=== PATIENT | male | born 1995 | race Caucasian/White ===

== ENCOUNTER 2022-12-14 10:19 | Emergency (ER) | payer MEDICAID, SELFPAY ==
[2022-12-14 10:20] VITALS: BP 121/68; PULSE 112; RESP 16; TEMP 36.9; O2SAT 98; BMI 28.1
--- NOTE | 2022-12-14 10:36 | PC.NURSE ---
rounded on pt stated no needs, visitor at bs
--- NOTE | 2022-12-14 10:37 | HMH.EDGENADL ---
Discharge Plan Disposition Patient Disposition: Home, Self-Care Condition: Good Referrals Follow up/Referrals: Lalito Argueta APRN [Primary Care Provider] - See instructions Activity Restrictions/Add. Instructions Additional Instructions/Restrictions: You were evaluated in the emergency department today. Please take Tylenol and ibuprofen at home as needed for symptoms. I also recommend taking [id number] cold and flu medications to improve your symptoms as well. Make sure that you are not doubling up on acetaminophen between Tylenol and [id number] cold and flu medications. Follow-up with your primary care provider over the next 3 days for reassessment. Return to the emergency department for new or worsening symptoms. Clinical Impressions Clinical Impression: Acute viral syndrome Instructions Patient Instructions: DI for Viral Syndrome, DI for Headache Discharge ED Provider: Marisol Wilson General Adult HPI General Chief complaint: Headache Stated complaint: fever, body aches, runny nose, cough, driange, h/a Time Seen by Provider: 12/14/22 10:31 Mode of Arrival: Ambulatory Source of Information: Patient Limitations: No Limitations Description of Symptoms (Recalled from ER Triage Doc. by RN): Patient reports headache and body aches since this morning. Denies n/v/d. History of Present Illness HPI narrative: This patient is a 27-year-old male with a history of rheumatoid arthritis presenting to the emergency department for evaluation with concern for headache, body aches, fever, nasal congestion, and sinus drainage that started last night. He denies any other concerns. He was well yesterday prior to this. He denies any vision changes, numbness, tingling, unilateral weakness, or other concerns. Related Data Allergies Allergy/AdvReac Type Severity Reaction Status Date / Time oseltamivir [From Tamiflu] Allergy Verified 12/14/22 10:29 [facility] Disclaimer: The information contained in this section may have been updated after the patient was seen, as this information can be updated by other users. Social History Smoking Status: Current every day smoker alcohol intake: never current occupational status: employed Travel in the last 8 weeks: None ROS Obtained: Yes All systems reviewed & no additional complaints except as documented Physical Exam General General appearance: alert and in no apparent distress Head Head exam: atraumatic and normocephalic Eye Eye exam: Present normal appearance, PERRL and EOMI ENT ENT exam: Present normal exam, normal oropharynx, mucous membranes moist and normal external ear exam Neck Neck exam: Present normal inspection, full ROM and trachea midline; Absent tenderness Chest Chest inspection: Present normal inspection and symmetric chest wall rise; Absent tenderness Respiratory Respiratory exam: Present normal lung sounds bilaterally; Absent respiratory distress, wheezes, stridor or accessory muscle use Cardiovascular Cardiovascular exam: Present regular rate and normal rhythm Abdominal Exam Abdominal exam: Present soft; Absent distention, tenderness or guarding Extremities Exam Extremities exam: Present normal inspection, full ROM and normal capillary refill; Absent tenderness or edema Back Exam Back exam: Present normal inspection and full ROM; Absent tenderness Neurological Exam Neurological exam: Present alert, oriented X3, CN II-XII intact and normal gait; Absent motor sensory deficit Psychiatric Psychiatric exam: Present normal affect and normal mood Skin Skin exam: Present warm and dry Medical Decision Making Medical Records Medical records reviewed: Yes I reviewed the patient's medical records. Hemal Inquiry Pt receiving controlled substance: No Vital Signs: 12/14/22 10:20 12/14/22 12:12 Temperature 98.4 F 98.1 F Temperature Source Oral Oral Pulse Rate 97 H Pulse Rate [Radial] 112 H
[2022-12-14 10:40] LABS: Coronavirus 19, PCR Not Detected (NotDetected); Influenza A, PCR Not Detected (NotDetected); Influenza B, PCR Not Detected (NotDetected)
--- NOTE | 2022-12-14 11:17 | PC.NURSE ---
rounded on patient at this time. gave pt drink for po challenge. pt updated on plan of care. no needs voiced at this time.
[2022-12-14 12:12] VITALS: BP 106/62; PULSE 97; RESP 18; TEMP 36.7; O2SAT 97
== END 2022-12-14 12:13 | disposition home or self-care (01) ==
PROVIDERS: Emergency Provider Emergency Medicine; PCP Nurse Practitioner Family
DX: R51.9 Headache, unspecified (principal); R50.9 Fever, unspecified; B34.9 Viral infection, unspecified; M06.9 Rheumatoid arthritis, unspecified; F17.200 Nicotine dependence, unspecified, uncomplicated
CPT/HCPCS: 87636; 96372; 99283

== ENCOUNTER 2023-08-25 10:47 | Emergency (ER) | payer MEDICAID, SELFPAY ==
[2023-08-25 11:00] VITALS: BP 128/86; BP 155/88; PULSE 128; PULSE 93; RESP 20; TEMP 36.8; O2SAT 98; BMI 28.2
--- NOTE | 2023-08-25 11:05 | ED_ITS ---
Discharge Plan Disposition Patient Disposition: Home, Self-Care Referrals Follow up/Referrals: Lalito Argueta APRN [Primary Care Provider] - See instructions Activity Restrictions/Add. Instructions Additional Instructions/Restrictions: You have evidence of moderate to severe cellulitis of your left leg. No systemic signs of illness or sepsis. You were given a medication called dalbavancin which should adequately treat your cellulitis. You should start to see improvement in about 48 hours. Return after 72 hours if you are not seeing improvement or if you are having high fevers or other concerns. Clinical Impressions Clinical Impression: Cellulitis of left leg Instructions Patient Instructions: DI for Skin Abscess Discharge ED Provider: Chandana Waggoner General Adult HPI General Chief complaint: Skin/Abscess/Foreign Body Stated complaint: left leg upper thigh bullseye rash headache chills Time Seen by Provider: 08/25/23 10:56 History of Present Illness HPI narrative: Patient is a 28-year-old previously healthy other than rheumatoid arthritis on NSAIDs presenting today with left leg swelling and redness fevers and chills. States that this started about 2 weeks ago and initially had the presentation or the findings that were consistent with a bull's-eye rash. No definitive tick bites or other bug bite that he is aware. He did go see his primary care doctor was started on mupirocin and Bactrim Lyme titers apparently were sent but no results from those have been found. Patient does have some fevers and chills lightheadedness and overall not feeling well. The swelling in his left lateral aspect of his thigh is significantly worsened which prompted his emergency department visit today. Related Data Allergies Allergy/AdvReac Type Severity Reaction Status Date / Time oseltamivir [From Tamiflu] Allergy Verified 12/14/22 10:29 [facility] Disclaimer: The information contained in this section may have been updated after the patient was seen, as this information can be updated by other users. Social History (Updated 12/14/22 @ 13:34 by Marisol Wilson DO) Smoking Status: Never smoker alcohol intake: never current occupational status: employed Travel in the last 8 weeks: None ROS Obtained: Yes All systems reviewed & no additional complaints except as documented Physical Exam General General appearance: alert Respiratory Respiratory exam: Present normal lung sounds bilaterally Cardiovascular Cardiovascular exam: Present tachycardia Abdominal Exam Abdominal exam: Present soft; Absent distention or tenderness Expanded Lower Extremity Exam Left: Leg image: 2 1. erythema warmth swelling and ttp Neurological Exam Neurological exam: Present alert and oriented X3 Medical Decision Making Hemal Inquiry Pt receiving controlled substance: No Vital Signs: 08/25/23 11:00 08/25/23 11:00 Temperature 98.3 F Temperature Source Oral Pulse Rate 93 H Pulse Rate [Left Radial] 128 H Respiratory Rate 20 Blood Pressure 128/86 Blood Pressure [Right Arm] 155/88 H Blood Pressure Mean 100 Blood Pressure Mean [Right Arm] 110 02 Sat by Pulse Oximetry 98 98 Oxygen Delivery Method Room Air Lab Data Lab results reviewed: Yes I reviewed the patient's lab results. Lab Results 08/25/23 11:05: WBC 8.8, RBC 5.01, Hgb 15.5, Hct 46.6, MCV 92.9, MCH 30.8, MCHC 33.2, RDW 13.9, Plt Count 287, MPV 8.6, Neut % (Auto) 72.9, Lymph % (Auto) 18.7, [place] % (Auto) 4.8, Eos % (Auto) 2.7, Baso % (Auto) 0.9, Neut # (Auto) 6.4, Lymph # (Auto) 1.7, [place] # (Auto) 0.4, Eos # (Auto) 0.2, Baso # (Auto) 0.1, Sodium 139, Potassium 3.9, Chloride 104, Carbon Dioxide 23, Anion Gap 15.9 H, BUN 10, Creatinine 1.00, Estimated GFR 88, Est GFR ( Amer) 106, Glucose 85, Lactate 2.0, Calcium 10.5 H, Total Bilirubin 0.5, AST 31, ALT 31, Alkaline Phosphatase 115, Total Creatine Kinase 109, Troponin I < 0.01, C-Reactive Protein 22.4 H, Total Protein 8.4 H, Albumin 5.0, Globulin 3.4 H, Albumin/Globulin Ratio 1.5 08/25/23 11:05 08/25/23 11:05 Orders (Tests/Meds): ED MEDICATIONS Discontinued Medications Generic Name Dose Route Start Last Admin Trade Name Freq PRN Reason Stop Dose Admin Lactated Ringer's 1,000 mls @ 999 mls/hr 08/25/23 11:00 08/25/23 11:38 Lactated Ringer's 1000 Ml Bag IV 08/25/23 12:00 999 mls/hr .Q1H1M ELFEGO Administration Dalbavancin 1,500 mg/ Dextrose 250 mls @ 500 mls/hr 08/25/23 12:34 IV 08/25/23 12:35 ONCE ONE ORDERS Category Date Time Status XR femur LT 2V Stat Exams 08/25/23 11:41 Taken CBC w/Auto Diff [Complete Blood Count Auto Diff] Stat Lab 08/25/23 11:05 Completed CK [Creatine Kinase] Stat Lab 08/25/23 11:05 Completed CMP [Comprehensive Metabolic Panel] Stat Lab 08/25/23 11:05 Completed CRP [C-Reactive Protein] Stat Lab 08/25/23 11:05 Completed Lactic Acid Stat Lab 08/25/23 11:05 Completed Lyme Ab, Modified 2-Tier Stat Lab 08/25/23 11:05 Received Lyme B. burgdorferi PCR Blood Stat Lab 08/25/23 11:05 Received Trop I [Troponin I] Stat Lab 08/25/23 11:05 Completed Troponin I Q3H Lab 08/25/23 14:00 Ordered Troponin I Q3H Lab 08/25/23 17:00 Ordered Blood Culture Stat Micro 08/25/23 11:30 Received ECG Data Tracing #1: I reviewed this ECG and interpreted as documented below: Ventricular 93 sinus rhythm there is right axis deviation no acute ischemic changes noted no other conduction abnormalities Medical Decision Narrative: 28-year-old male presented with left lateral leg cellulitis. He is systemically ill with a tachycardic heart rate of 130. Will work him up for sepsis. Additionally did show me a picture of the initial bite which does not fact appear to be erythema migrans concerning for possible Lyme disease. Lyme titers have been started. He has not been on any doxycycline yet. Bactrim likely does not have adequate coverage for Lyme. Staph and strep and on endemic area more likely. Will hold off on antibiotics until the remainder of his workup is complete. X-ray performed to person interpreted shows no subcutaneous gas Labs returned which were unremarkable. Reassessment 12:40 PM patient feeling much better vital signs improved heart rate in the 70s no evidence of sepsis objectively. He also states that his doctor called him back and told him that his Lyme titers were negative. Therefore we will not treat further for Lyme disease. He has been given a dose of dalbavancin in the emergency department which should adequately cover and treat his cellulitis which has been failing with Bactrim. He has been advised that this should improve in 48 to 72 hours and return with any significant worsening of his symptoms. He was discharged in stable and improved condition. Critical Care Critical Care Time Critical Care Time: No
--- NOTE | 2023-08-25 11:12 | ECG_ITS ---
APPROVED REPORT Exam: Resting ECG HR:93 bpm ECG Measurements Heart Rate 93 AXES NH 127 P 64 QRSd 108 QRS 120 QT 345 T 16 QTc 396 Conclusion SINUS RHYTHM RIGHT AXIS DEVIATION [QRS AXIS > 100] ABNORMAL ECG UNCONFIRMED REPORT Electronically signed by : Yevgeniy Waggoner, 08/25/2023 15:19:55
[2023-08-25 11:19] LABS: Basophils # 0.1 K/mm3 (0-0.2); Basophils % 0.9 % (0.1-2.0); Eosinophils # 0.2 K/mm3 (0.0-0.4); Eosinophils % 2.7 % (0.1-12.0); Hematocrit 46.6 % (42.0-52.0); Hemoglobin 15.5 g/dL (14.1-18.0); Lymphocytes # 1.7 K/mm3 (0.7-4.5); Lymphocytes % 18.7 % (10-50); Mean Corpuscular HGB Conc 33.2 g/dL (31.8-35.4); Mean Corpuscular Hemoglobin 30.8 pg (27.0-31.2); Mean Corpuscular Volume 92.9 fl (80-94); Mean Platelet Volume 8.6 fl (7.4-10.4); Monocytes # 0.4 K/mm3 (0.1-1.0); Monocytes % 4.8 % (1.7-9.3); Neutrophils # 6.4 K/mm3 (1.8-7.8); Neutrophils % 72.9 % (37.0-80.0); Platelet Count 287 K/mm3 (142-424); Red Blood Count 5.01 M/mm3 (4.60-6.20); Red Cell Distribution Width 13.9 % (11.5-17.5); White Blood Count 8.8 K/mm3 (4.8-10.8)
[2023-08-25 11:24] LABS: Chloride 104 mmol/L (98-107); Potassium 3.9 mmoL/L (3.5-5.1); Sodium 139 mmol/L (136-145)
[2023-08-25 11:27] LABS: Alanine Aminotransferase 31 U/L (12-78); Alkaline Phosphatase 115 U/L (38-126); Anion Gap 15.9 mEq/L (5-15); Aspartate Amino Transferase 31 U/L (17-59); Bilirubin,Total 0.5 mg/dl (0.2-1.3); Blood Urea Nitrogen 10 mg/dl (9-20); Calcium 10.5 mg/dl (8.4-10.2); Carbon Dioxide 23 mmol/L (22.0-30.0); Creatine Kinase 109 U/L (55-170); Estimated Glomerular Filt Rate 88 ml/min (>60); GFR (African American) 106 ML/MIN (>60); Glucose 85 mg/dl (74-100)
[2023-08-25 11:28] LABS: Albumin/Globulin Ratio 1.5 (1.1-1.8); Globulin 3.4 g/dL (1.3-3.2); Total Protein,Serum 8.4 g/dl (6.3-8.2)
[2023-08-25 11:33] LABS: C-Reactive Protein 22.4 mg/L (0-4)
[2023-08-25] MEDS: LACTATED RINGERS 1000ML 1,000 ML 999 ML IV (11:38)
[2023-08-25 11:41] VITALS: BP 103/60; PULSE 87; O2SAT 98
--- NOTE | 2023-08-25 11:41 | XR_ITS ---
FINAL REPORT CLINICAL HISTORY: cellulitis r/o gas FINDINGS: LEFT FEMUR 2 views were obtained. There is no acute fracture or dislocation. Visualized joint spaces are normally aligned. Soft tissues are unremarkable. There is no evidence of soft tissue gas. IMPRESSION: No acute bony abnormality. Reviewed, Interpreted and Dictated by Richard Callaway III, MD Transcribed by Carol Pearson Authenticated and [facility]
[2023-08-25 11:55] LABS: Troponin I < 0.01 ng/ml (0.00-0.034)
[2023-08-25 12:00] VITALS: BP 119/49; PULSE 77; O2SAT 98
[2023-08-25 12:30] VITALS: BP 116/78; PULSE 70; O2SAT 99
--- NOTE | 2023-08-25 12:37 | PC.NURSE ---
DR MAYNARD AT BEDSIDE
[2023-08-25] MEDS: DALBAVANCIN HCL 1,500 MG in DEXTROSE 5 % IN WATER 250 ML 500 MG IV (13:06)
[2023-08-25 13:50] VITALS: BP 116/78; PULSE 70; RESP 20; TEMP 36.8; O2SAT 99
[2023-08-26 15:01] LABS: Lyme Ab CIA Positive (Negative); Lyme Ab IgM CIA Positive (Negative); Lyme IgG CIA Positive (Negative)
[2023-08-28 09:14] LABS: Lyme B. burgdorferi PCR Blood Negative (Negative)
== END 2023-08-25 13:51 | disposition home or self-care (01) ==
PROVIDERS: Emergency Provider Student in an Organized Health Care Education/Training Program; PCP Nurse Practitioner Family
DX: L03.116 Cellulitis of left lower limb (principal); M06.00 Rheumatoid arthritis without rheumatoid factor, unspecified site; R00.0 Tachycardia, unspecified
CPT/HCPCS: 73552; 80053; 82550; 83605; 84484; 85025; 86140; 86618; 87040; 87476; 93005; 96361; 96374; 99284; J0875; J7060; J7120

== ENCOUNTER 2024-01-08 05:09 | Emergency (ER) | payer MEDICAID, SELFPAY ==
[2024-01-08 05:10] VITALS: BP 138/85; PULSE 100; RESP 16; TEMP 36.5; O2SAT 100; BMI 27.4
--- NOTE | 2024-01-08 05:23 | ED_ITS ---
Discharge Plan Disposition Patient Disposition: Home, Self-Care Condition: Good Prescriptions Prescriptions: New ondansetron 4 mg tablet,disintegrating 4 mg PO Q6H PRN (Reason: nausea and vomiting) Qty: 10 0RF Referrals Follow up/Referrals: Lalito Argueta APRN [Primary Care Provider] - See instructions Activity Restrictions/Add. Instructions Additional Instructions/Restrictions: You were evaluated in the ER and are appropriate for discharge at this time. Take the prescribed ondansetron if needed for nausea, vomiting. Also take Tylenol, ibuprofen if needed for pain or fevers. Do not exceed the recommended dose on the bottle. Drink plenty of water. Make an appointment with primary care doctor for reevaluation in a few days, return to the ER with new, worsening, or otherwise concerning symptoms. Clinical Impressions Clinical Impression: Nausea, vomiting, and diarrhea, Abdominal pain Instructions Patient Instructions: DI for Acute Abdominal Pain Print Language Print Language: Bengali Discharge ED Provider: Sabra Parker General Adult HPI General Chief complaint: Abdominal Pain Stated complaint: abd pain, vomiting, chills, no appetite Time Seen by Provider: 01/08/24 05:16 History of Present Illness HPI narrative: 28-year-old male with no known medical conditions, no daily medications, no known drug allergies presents to the ER with complaints of abdominal pain, nausea, vomiting, diarrhea. Patient states his pain started 3 days ago. He has not had documented fever but has had chills. He states the pain 2 days ago was not that bad, yesterday it was significantly worse especially in the morning. He states since that time he has had steady pain as well as associated nausea, vomiting, diarrhea. Vomiting is nonbloody, nonbilious, and occurred this morning. Diarrhea is nonbloody, nonmelanotic. No dysuria or hematuria. Patient reports that his pain has mostly been in the middle of the stomach. No history of abdominal surgeries. Patient denies alcohol use. He has not tried any medications for his symptoms. ROS otherwise negative. Related Data Previous Rx's ?Medication ?Instructions ?Recorded ondansetron 4 mg disintegrating 4 mg PO Q6H PRN nausea and 01/08/24 tablet vomiting #10 tabs Allergies Allergy/AdvReac Type Severity Reaction Status Date / Time oseltamivir [From Tamiflu] Allergy Verified 12/14/22 10:29 [facility] Disclaimer: The information contained in this section may have been updated after the patient was seen, as this information can be updated by other users. Social History (Updated 12/14/22 @ 13:34 by Marisol Wilson DO) Smoking Status: Current every day smoker alcohol intake: never current occupational status: employed Travel in the last 8 weeks: None ROS Obtained: Yes All systems reviewed & no additional complaints except as documented Positive ROS per HPI Physical Exam General General appearance: alert and in no apparent distress Head Head exam: atraumatic and normocephalic Eye Eye exam: Present PERRL and EOMI ENT ENT exam: Present mucous membranes moist Neck Neck exam: Present normal inspection and full ROM Chest Chest inspection: Present symmetric chest wall rise Respiratory Respiratory exam: Present normal lung sounds bilaterally; Absent respiratory distress, wheezes or stridor Cardiovascular Cardiovascular exam: Present regular rate and normal rhythm Abdominal Exam Abdominal exam: Present soft and tenderness; Absent distention, guarding or rebound Abdominal tenderness: Present RLQ (Mild to moderate) and diffuse (Mild) Extremities Exam Extremities exam: Present full ROM Neurological Exam Neurological exam: Present alert and oriented X3; Absent motor sensory deficit Psychiatric Psychiatric exam: Present normal affect and normal mood Skin Skin exam: Present warm and dry Medical Decision Making Medical Records Screening: Per USPSTF and CDC recommendations, given the prevalence of disease in our region, it is our hospital?s policy to screen for HIV and viral Hepatitis for all patients aged 18 and over and those with ongoing risk factors. Hemal Inquiry Pt receiving controlled substance: No Vital Signs: 01/08/24 05:10 Temperature 97.7 F Temperature Source Oral Pulse Rate [Right Radial] 100 H Respiratory Rate 16 Blood Pressure [Left Arm] 138/85 Blood Pressure Mean [Left Arm] 102 Blood Pressure Source [Left Arm] Automatic Cuff Blood Pressure Position [Left Arm] Supine 02 Sat by Pulse Oximetry 100 Oxygen Delivery Method Room Air Lab Data Lab Results 01/08/24 05:22: WBC 9.3, RBC 4.89, Hgb 15.5, Hct 44.2, MCV 90.4, MCH 31.7 H, MCHC 35.1, RDW 13.3, Plt Count 303, MPV 9.0, Neut % (Auto) 64.6, Lymph % (Auto) 25.2, [place] % (Auto) 6.9, Eos % (Auto) 2.6, Baso % (Auto) 0.7, Neut # (Auto) 6.0, Lymph # (Auto) 2.4, [place] # (Auto) 0.6, Eos # (Auto) 0.2, Baso # (Auto) 0.1, PT 9.9 L, INR 0.87 L, Sodium 143, Potassium 3.4 L, Chloride 109 H, Carbon Dioxide 27, Anion Gap 10.4, BUN 13, Creatinine 0.90, Estimated Creat Clear 131, Estimated GFR 99, Est GFR ( Amer) 120, Glucose 77, Lactate 1.8, Calcium 9.8, Total Bilirubin 0.4, AST 30, ALT 31, Alkaline Phosphatase 94, C-Reactive Protein 18.2 H, Total Protein 7.9, Albumin 4.7, Globulin 3.2, Albumin/Globulin Ratio 1.5, Lipase 136 01/08/24 05:22 01/08/24 05:22 Orders (Tests/Meds): ED MEDICATIONS Generic Name Dose Route Start Last Admin Trade Name Freq PRN Reason Stop Dose Admin Potassium Chloride 20 meq 01/08/24 05:58 Potassium Chloride 20meq Tab PO 01/08/24 05:59 ONCE ONE Discontinued Medications Generic Name Dose Route Start Last Admin Trade Name Freq PRN Reason Stop Dose Admin Ketorolac Tromethamine 15 mg 01/08/24 05:22 01/08/24 05:29 Ketorolac 30mg/Ml Vial IV 01/08/24 05:23 15 mg ONCE ONE Administration Ondansetron HCl 4 mg 01/08/24 05:22 01/08/24 05:29 Ondansetron 4mg/2ml Vial IV 01/08/24 05:23 4 mg ONCE ONE Administration ORDERS Category Date Time Status CBC w/Auto Diff [Complete Blood Count Auto Diff] Stat Lab 01/08/24 05:22 Completed CMP [Comprehensive Metabolic Panel] Stat Lab 01/08/24 05:22 Completed CRP [C-Reactive Protein] Stat Lab 01/08/24 05:22 Completed Lactic Acid Stat Lab 01/08/24 05:22 Completed Lipase Stat Lab 01/08/24 05:22 Completed PT INR [Prothrombin Time INR] Stat Lab 01/08/24 05:22 Completed Medical Decision Narrative: In summary, this 28-year-old male presents to the emergency department today with abdominal pain, nausea, vomiting, diarrhea for 3 days. On initial evaluation patient is hemodynamically stable, afebrile, cardiopulmonary exam benign, abdominal exam notable for mild diffuse tenderness, slightly worse tenderness in the right lower quadrant is reported by the patient however he has no guarding, no rebound tenderness, no Rovsing sign, no clinical findings of localized or diffuse peritonitis. Differential diagnosis includes but is not limited to viral syndrome, mesenteric adenitis, colitis, leukocytosis, pancreatitis, lactic acidosis, electrolyte abnormality, dehydration, I did also consider appendicitis though I have lower suspicion for this given duration and morphology of patient's symptoms as well as his exam. Based on these concerns, I ordered serum labs initially. Patient received Toradol, Zofran for treatment. Labs were reviewed demonstrating no leukocytosis, no anemia, there is no bandemia or left shift which is reassuring against acute bacterial infection including appendicitis, PT/INR nonactionable, CMP with trace electrolyte changes consistent with mild GI volume loss, patient is receiving oral repletion of potassium, no kidney or liver dysfunction, no findings of significant dehydration, lipase normal and reassuring against pancreatitis, lactate normal at 1.8. CRP is elevated at 18.2, however this is nonspecific and in the setting of otherwise very reassuring labs it is nonactionable. Labs are reassuring against acute intra-abdominal pathology. If patient did have appendicitis or other dangerous pathology, he should have developed a leukocytosis and potentially a lactic acidosis at the very least. I do not believe any imaging is indicated at this time in the setting of his reassuring labs. On reevaluation, patient's pain is controlled, he is tolerating oral intake, he is appropriate for discharge at this time. I prescribed Zofran for outpatient management of symptoms. Patient was given instructions on symptomatic management, follow up instructions, and return precautions for the emergency department. Patient indicated understanding and was discharged in stable condition. Critical Care Critical Care Time Critical Care Time: No
[2024-01-08] MEDS: KETOROLAC 30MG/ML VIAL 15 MG IV (05:29)
[2024-01-08] MEDS: ONDANSETRON 4MG/2ML VIAL 4 MG IV (05:29)
[2024-01-08 05:35] LABS: Basophils # 0.1 K/mm3 (0-0.2); Basophils % 0.7 % (0.1-2.0); Eosinophils # 0.2 K/mm3 (0.0-0.4); Eosinophils % 2.6 % (0.1-12.0); Hematocrit 44.2 % (42.0-52.0); Hemoglobin 15.5 g/dL (14.1-18.0); Lymphocytes # 2.4 K/mm3 (0.7-4.5); Lymphocytes % 25.2 % (10-50); Mean Corpuscular HGB Conc 35.1 g/dL (31.8-35.4); Mean Corpuscular Hemoglobin 31.7 pg (27.0-31.2); Mean Corpuscular Volume 90.4 fl (80-94); Monocytes # 0.6 K/mm3 (0.1-1.0); Monocytes % 6.9 % (1.7-9.3); Neutrophils % 64.6 % (37.0-80.0); Platelet Count 303 K/mm3 (142-424); Red Blood Count 4.89 M/mm3 (4.60-6.20); Red Cell Distribution Width 13.3 % (11.5-17.5); White Blood Count 9.3 K/mm3 (4.8-10.8)
[2024-01-08 05:39] LABS: Albumin Level 4.7 g/dl (3.5-5.0); Chloride 109 mmol/L (98-107); Potassium 3.4 mmoL/L (3.5-5.1); Sodium 143 mmol/L (136-145)
[2024-01-08 05:42] LABS: Alanine Aminotransferase 31 U/L (12-78); Albumin/Globulin Ratio 1.5 (1.1-1.8); Alkaline Phosphatase 94 U/L (38-126); Anion Gap 10.4 mEq/L (5-15); Aspartate Amino Transferase 30 U/L (17-59); Bilirubin,Total 0.4 mg/dl (0.2-1.3); Blood Urea Nitrogen 13 mg/dl (9-20); Calcium 9.8 mg/dl (8.4-10.2); Carbon Dioxide 27 mmol/L (22.0-30.0); Creatinine Clearance Estimated 131 mL/min (50-200); Estimated Glomerular Filt Rate 99 ml/min (>60); GFR (African American) 120 ML/MIN (>60); Globulin 3.2 g/dL (1.3-3.2); Glucose 77 mg/dl (74-100); Total Protein,Serum 7.9 g/dl (6.3-8.2)
[2024-01-08 05:43] LABS: Lactic Acid 1.8 mmol/L (0.7-2.1); Lipase 136 U/L (23-300)
[2024-01-08 05:44] LABS: INR 0.87 (0.9-1.1); Prothrombin Time 9.9 seconds (10.1-12.5)
[2024-01-08 05:48] LABS: C-Reactive Protein 18.2 mg/L (0-4)
[2024-01-08] MEDS: POTASSIUM CHLORIDE 20MEQ TAB 20 MEQ PO (06:03)
[2024-01-08 06:08] VITALS: BP 113/75; PULSE 77; RESP 16; TEMP 36.5; O2SAT 98
== END 2024-01-08 06:08 | disposition home or self-care (01) ==
PROVIDERS: Emergency Provider Emergency Medicine; PCP Nurse Practitioner Family
DX: R11.2 Nausea with vomiting, unspecified (principal); R50.9 Fever, unspecified; R10.9 Unspecified abdominal pain; R19.7 Diarrhea, unspecified
CPT/HCPCS: 80053; 83605; 83690; 85025; 85610; 86140; 96374; 96375; 99283; J1885; J2405